=== PATIENT | male | born 1975 | race Caucasian/White ===

== ENCOUNTER 2021-11-15 08:00 | Outpatient (RCR) | payer BC, SELFPAY ==
[2021-11-15 08:05] VITALS: BMI 23.3
[2021-11-15 08:11] VITALS: BMI 23.3
== END 2022-02-05 09:46 | disposition home or self-care (01) ==
LOC: ANHDMC 08:00
PROVIDERS: PCP Internal Medicine; Visit Provider Internal Medicine Endocrinology, Diabetes & Metabolism
DX: E10.649 Type 1 diabetes mellitus with hypoglycemia without coma (principal); Z71.89 Other specified counseling; Z71.3 Dietary counseling and surveillance
CPT/HCPCS: 97802; G0108

== ENCOUNTER 2022-12-28 06:47 | Emergency (ER) | payer OTHER, SELFPAY ==
[2022-12-28 06:50] VITALS: BP 116/73; PULSE 64; RESP 14; TEMP 36.4; O2SAT 97
[2022-12-28] MEDS: CLINDAMYCIN HCL 150 MG CAP PO (07:31)
[2022-12-28] MEDS: LIDOCAINE HCL 1% LOCAL INJ 10 ML VIAL INFILTRATE (07:31)
--- NOTE | 2022-12-28 08:23 | ED.GENADULT ---
HPI - General Adult General Chief complaint: Extremity Injury, Lower Stated complaint: Infection r little toe Time Seen by Provider: 12/28/22 07:11 History of Present Illness HPI narrative: 47-year-old male with history of type 1 diabetes presented emerged department for evaluation of an abscess between his fourth and fifth toes on his right foot. Patient states he is an avid runner and did develop a sore on his foot that since became infected. Patient states he woke up this morning and had increased pain and swelling of the suspected abscess. Related Data Allergies Allergy/AdvReac Type Severity Reaction Status Date / Time No Known Allergies Allergy Unknown Verified 12/11/22 11:37 Review of Systems Review of Systems: All systems reviewed & are unremarkable except as noted in HPI and below PMFSH Past Medical History Medical History Anxiety Erectile dysfunction Low libido Mixed hyperlipidemia Seizure Type 1 diabetes mellitus with hyperglycemia Surgical History Surgical History History of hernia repair Family History Family History Other Back pain Family history of arthritis Social History Social History (Updated 12/11/22 @ 11:46 by Nan Vu CMA) Smoking packs per day: 1 Smoking cigarettes per day: 20.0 Years smoked: 28 Smoking pack-years: 28.00 Smoking status: Current every day smoker Tobacco type: cigarettes Alcohol intake: former Substance use: never Lack of Transportation: No Lack of Food: Never True Current Housing: I Have Housing Concerned About Future Housing: No Difficulty Paying Gas/Electric Bills: No Difficulty Paying for Meds: No Currently Unemployed: No Education: High School Diploma/GED Difficulty w/ Childcare or Family Care: No Living arrangements: with family Additional living arrangements comments: lives with his girlfriend and 2 kids Occupation/Education: occupation 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 HEAD: normocephalic, atraumatic. EYES: PERRLA/EOMI, conjunctivae clear. NOSE: Normal no drainage EARS:TMS clear with good light reflex. THROAT: Pharynx clear, no exudate. NECK: Supple. No adenopathy, no masses. RESPIRATORY: Airway patent, respirations nonlabored. Clear to auscultation bilaterally, no rales, rhonchi, wheezing. CARDIOVASCULAR: Regular rate and rhythm without murmurs rubs or gallops. ABDOMINAL: Soft, nontender, nondistended, normal bowel sounds MUSCULOSKELETAL: Moves all extremities. Strength/ROM intact, No edema, No calf tenderness. NEURO: Alert. Cranial nerves II through XII intact. Grossly intact SKIN: Abscess between fourth and fifth toes on right foot Course Course Emergency Course: Abscess was drained as described in the procedure note with significant improvement in the patient's discomfort. Patient was started on clindamycin in the emergency department. Patient was discharged home with clindamycin and instructions for sitz bath's for the foot. Patient also has follow-up scheduled on Friday with his primary care physician. All questions and concerns were addressed and patient was educated on reasons to return to the emergency department. Vital Signs Vital signs: Vital Signs Temperature 97.6 F 12/28/22 06:50 Pulse Rate 64 12/28/22 06:50 Respiratory Rate 14 12/28/22 06:50 Blood Pressure 116/73 12/28/22 06:50 Pulse Oximetry 97 12/28/22 06:50 Oxygen Delivery Room Air 12/28/22 06:50 Temperature 97.6 F 12/28/22 06:50 Pulse Rate 64 12/28/22 06:50 Respiratory Rate 14 12/28/22 06:50 Blood Pressure 116/73 12/28/22 06:50 Pulse Oximetry 97 12/28/22 06:50 Oxygen Delive
== END 2022-12-28 08:39 | disposition home or self-care (01) ==
PROVIDERS: Emergency Provider Emergency Medicine; PCP Nurse Practitioner
DX: L02.611 Cutaneous abscess of right foot (principal); E10.9 Type 1 diabetes mellitus without complications; E78.2 Mixed hyperlipidemia; F17.210 Nicotine dependence, cigarettes, uncomplicated; Z79.4 Long term (current) use of insulin
CPT/HCPCS: 10060; 87070; 87205; 99283; A9270

== ENCOUNTER 2024-03-04 11:00 | Outpatient (RCR) | payer OTHER, SELFPAY ==
[2024-02-05 09:50] VITALS: BP_SYST 145
--- NOTE | 2024-02-05 11:03 | OPREHPOC ---
Outpatient Therapy Plan of Care This is a Multidisciplinary Plan of Care that may contain components documented by all disciplines (PT, OT, and ST.) PT Problem 1 PT Problem #1 Knowledge Deficit PT Goal 1 Goal / Goal Update *indep with HEP * correct shoulder position with exercises Target Visit 8 PT Problem 2 PT Problem #2 Pain PT Goal 1 Goal / Goal Update 1* decrease pain in L shoulder to 5/10 at worst 2* self assessment Quick DASH rating of 18% limitation in activity level 3* pt report NO awakening from sleeping due to shoulder pain Target Visit 8 PT Problem 3 PT Problem #3 Impaired Flexibility PT Goal 1 Goal / Goal Update increase L shoulder active ROM in standing, to improve use of L arm for home and functional tasks 1* flexion to 150' 2* abduction to 150' 3* IR- reach behind back, thumb to lower scapula Target Visit 8 PT Problem 4 PT Problem #4 Impaired Strength PT Goal 1 Goal / Goal Update increase strength of L shoulder/scapular complex, to increase use of L arm 1* prone scapular adduction with arm overhead x 10 reps 2* pt stand with correct position of shoulders/ scapula Target Visit 8
--- NOTE | 2024-02-05 11:03 | PTOPEVAL1 ---
Assessment and note entered by Narcisa Green, PT Evaluation Information Assessment Status Evaluation ICD-10 Condition Codes (PT) M25.512 Onset Mar 2023 Subjective Information doing work out, soreness of shoulder, then had lack of movement of shoulder; have been trying to do some stretching R handed; Activity level: fitness activity, runner; work office and manage job sites, walking, no physical lifting; Reported Pain Level Pain Score Self Report Additional Pain Score Comments pain range in the past week 0-9/10; sharp pain increase pain: reaching behind back, reach out to side, quick motion of lifting from the floor; unable to do pull up; cannot lie on L shoulder; decrease pain: resting, use of cane for pressure point massage over posterior shoulder; sleeping-awaken due to pain in shoulder 1-2 x/night problems to get comfortable position have not used heat or ice, instruct on PRN use; not taking any pain meds; Assessment PT Clinical Summary Vinh has the diagnosis of impingement syndrome L shoulder. Onset of pain 10 months ago with increase fitness workout. He is active, with fitness activities and running for marathon. Sleeping and activity level is disrupted due to shoulder pain. He is also having L shoulder pain with running. Quick DASH rating of 34% limitation in activity level. With the evaluation: decreased L shoulder active ROM of all motions with decreased strength; IR and abduction are most painful; rounded shoulder posture. Skilled PT services are indicated for modalities to decrease pain, therapeutic exercises to increase functional use of non dominant UE and education for HEP and posture correction. Plan of Care Interventions Electrical Stimulation,Hot Pack/Cold Pack,Manual Therapy,Neuro Re-education,Patient Education,Therapeutic Activities,Therapeutic Exercise,Ultrasound,Other Other Interventions taping, dry needling PT Services Indicated Yes Treatment Frequency and 1-2x/wk for 8 visits Duration These treatments will address the objective and functional deficits as defined above. The patient will be advanced safely and appropriately in order for the patient to progress towards his/her prior level of function. Additional exercises will be introduced and as well as a comprehensive home exercise program upon discharge, if needed, ?to ensure carryover of functional gains achieved in the clinic. This treatment plan has been reviewed and agreement upon by the patient.
--- NOTE | 2024-02-26 11:02 | PCPTNOTE ---
Patient was a No Show for today's appointment.
--- NOTE | 2024-03-08 14:19 | PCPTNOTE ---
Patient was a No Show/No Call for today's Progress Note visit.
--- NOTE | 2024-03-26 14:17 | PTOPDC ---
Assessment and note entered by Narcisa Green, PT Discharge Report Assessment Status Discharge - Pt Not Present ICD-10 Condition Codes (PT) M25.512 Onset Mar 2023 Subjective Information pt was not seen this date Assessment PT Clinical Summary Vinh has received 6 PT sessions, from Feb 04 to Mar 04. He did not show for 2 appointments. Discharge PT due to stop attending therapy. The goals were not addressed. Plan of Care PT Services Indicated No
== END 2024-03-26 16:37 | disposition home or self-care (01) ==
LOC: ANHPT 11:00
PROVIDERS: PCP Nurse Practitioner; Visit Provider Orthopaedic Surgery
DX: M75.42 Impingement syndrome of left shoulder (principal); M24.112 Other articular cartilage disorders, left shoulder
CPT/HCPCS: 97032; 97110; 97140; 97161; 97530

== ENCOUNTER 2024-04-12 11:36 | Outpatient (CLI) | payer OTHER, SELFPAY ==
--- NOTE | ~2024-04-12 | MR_ITS ---
EXAMINATION: MR shoulder LT w con DATE: 04/12/2024 13:00 INDICATION: Left shoulder pain TECHNIQUE: Magnetic resonance imaging (MRI) of the left shoulder was performed following intra-artic ular gadolinium contrast injection and without intravenous contrast. Details of the glenohumeral join t injection have been dictated separately. Sequences included axial T2-weighted FS FSE, axial T1-brea ghted FS FSE, coronal oblique T1-weighted FS FSE, coronal oblique T2-weighted FSE, sagittal T2-weight ed FS FSE, sagittal T1-weighted FSE, and ABER (abduction external rotation) T1-weighted FS FSE. COMPARISON: None. FINDINGS: Coracoacromial arch: The acromion undersurface is curved in morphology (type II). The coracoacromial ligament is normal. A cromioclavicular joint is normal. Rotator cuff: The supraspinatus, infraspinatus and teres minor are normal. The subscapularis is normal. Normal rota tor cuff muscle bulk and signal. Biceps tendon, glenoid labrum and glenohumeral cartilage: Long head of the biceps tendon is normal. Small shallow tear along the chondral labral junction at th e 12:00-11:00 position of the superior glenoid labrum. Remainder of the labrum is normal. Glenohumera l cartilage is normal. Bones and other: Normal marrow signal with no edema, fracture or pathologic marrow replacing process. Contrast extends into a few intraosseous ganglion cyst at the bare space along side the medial and posterior facets o f the greater tuberosity. Small amount of fluid in the subacromial/subdeltoid bursa consistent with m ild bursitis. IMPRESSION: 1. Small shallow tear at the base of the superior glenoid labrum. Reviewed, dictated and finalized at location B. FISHER
--- NOTE | ~2024-04-12 | XR_ITS ---
EXAMINATION: XR fl inj shoulder LT - MR/CT DATE: 04/12/2024 12:22 INDICATION: Back left shoulder pain TECHNIQUE: A time-out was performed to verify the patient's name, date of , and procedure to b e performed. The procedure including the risks, benefits, and alternatives was discussed with the pat ient. Risks discussed included bleeding and infection. The patient understood the risks and agreed to proceed. The skin overlying the rotator cuff interval of the left glenohumeral joint was prepped an d draped in usual sterile fashion. Anesthetic was administered with 1% lidocaine subcutaneously. A 22 G needle was advanced under fluoroscopic guidance into the joint. Injection of 1 mL of Omnipaque 240 confirmed intra-articular position of the needle. Subsequently, injectate consisting of 12 mL of 2:1:1 mixture of sterile saline:Omnipaque 240:1% lidocaine mixed 200:1 with 529 mg/mL Multihance gatito olinium contrast was instilled with intra-articular menstruation confirmed with intermittent fluoros copy. The needle was removed and the entry site was cleaned and dressed. There were no immediate com plications. Fluoroscopy exposure time was 0.3 minutes. The total number of images was 143. FINDINGS: Real-time fluoroscopy demonstrates the needle in the left glenohumeral joint. IMPRESSION: 1. Successful left glenohumeral joint injection of gadolinium contrast mixture subsequent MRI arthrog jarrett which has been dictated separately. Reviewed, dictated and finalized at location B. [place] CASHIER IMPRESSION: 1. Successful left glenohumeral joint injection of gadolinium contrast mixture subsequent MRI arthrogram which has been dictated separately.
== END 2024-04-12 11:37 | disposition home or self-care (01) ==
LOC: MICIMG 11:37
PROVIDERS: PCP Nurse Practitioner; Visit Provider Orthopaedic Surgery
DX: M25.512 Pain in left shoulder (principal)
CPT/HCPCS: 23350; 73040; 73222; A9577; Q9967

== ENCOUNTER 2024-04-28 14:16 | Outpatient (CLI) | payer OTHER, SELFPAY ==
--- NOTE | ~2024-04-28 | XR_ITS ---
EXAMINATION: XR lg joint inject/asp w image DATE: 04/28/2024 14:44 INDICATION: Pain in left shoulder. TECHNIQUE: A time-out was performed to verify the patient's name, date of , and procedure to b e performed. The procedure including the risks, benefits, and alternatives was discussed with the pat ient. Risks discussed included bleeding and infection. The patient understood the risks and agreed to proceed. The skin overlying the left glenohumeral joint was prepped and draped in usual sterile fas hion. Anesthetic was administered with 1% lidocaine subcutaneously. A 22 G needle was advanced unde r fluoroscopic guidance into the joint. Subsequently, injectate consisting of 4 mL 1% lidocaine and 1 mL 80 mg/mL Depo-Medrol was instilled. The needle was removed and the entry site was cleaned and d ressed. There were no immediate complications. Fluoroscopy exposure time was 0.1 minutes. The total number of images was 1. FINDINGS: Real-time fluoroscopy demonstrates the needle in the left glenohumeral joint. Patient's neo n prior to procedure:12/02. Patient's pain following the procedure: 07/05. IMPRESSION: 1. Fluoroscopy guided left glenohumeral joint injection of local anesthetic and steroid with decrease in the patient's presenting pain. Reviewed, dictated and finalized at location A. K WALKER
== END 2024-04-28 14:17 | disposition home or self-care (01) ==
PROVIDERS: PCP Nurse Practitioner; Visit Provider Orthopaedic Surgery
DX: M25.512 Pain in left shoulder (principal)
CPT/HCPCS: 20610; 77002; J1010; J2003

== ENCOUNTER 2024-04-28 18:05 | Emergency (ER) | payer OTHER, SELFPAY ==
--- NOTE | ~2024-04-28 | CT_ITS ---
Procedure: CT shoulder LT w con Ordering provider: Luis Enrique Thomas MD History: . shoulder pain s/p injection . Comparison: None. Technique: Thin slice axial CT of the No IV contrast was given. Sagittal and coronal reformatted imag es were also obtained and reviewed. Radiation reduction technique utilized The dose-length product was 280.82 mGy-cm. Findings: BONES: No fracture or dislocation. JOINT SPACES: Normal SOFT TISSUES: Air is seen in the soft tissues below the acromioclavicular joint. Air bubbles also see n inferior to the humeral head. IMPRESSION: No acute osseous abnormality. Air bubbles most likely post procedural. Reviewed, dictated and finalized at location A. TAL PRINTER OPERATOR
[2024-04-28 18:20] VITALS: BP 106/56; PULSE 61; RESP 18; TEMP 36.4; O2SAT 100
[2024-04-28] MEDS: MORPHINE SULFATE (*CRX) 4 MG/ML INJ IV PUSH (21:24)
[2024-04-28 21:34] LABS: Basophils Percent Auto 0.2 % (0.2-1.2); Hemoglobin 14.9 g/dL (14.0-18.0); Immature Granulocyte Absolute 0.05 K/mm3 (0.00-0.031); Immature Granulocyte Percent A 0.4 % (0-0.5); Lymphocytes Absolute Auto 0.75 K/mm3 (0.9-3.2); Lymphocytes Percent Auto 6.6 % (18.3-44.2); Mean Corpuscular HGB Conc 35.5 g/dl (32-36); Mean Corpuscular Hemoglobin 32.3 pg (26-34); Mean Corpuscular Volume 90.9 fl (80-100); Mean Platelet Volume 9.8 fl (7.4-10.4); Monocytes Absolute Auto 0.4 K/mm3 (0.1-0.6); Monocytes Percent Auto 3.9 % (2.6-8.5); Neutrophils Absolute Auto 10.1 K/mm3 (1.3-6.7); Neutrophils Percent Auto 88.9 % (45.5-73.1); Platelet Count Result 272 k/mm3 (150-375); Red Blood Count 4.62 M/mm3 (4.6-6.20); Red Cell Distribution Width 12.3 % (11.5-14.5); White Blood Count 11.4 K/mm3 (4.5-10.0)
[2024-04-28 21:36] LABS: Estimated CRCL calculation 65 ml/min; Estimated Glomerular Filt Rate > 60
[2024-04-28 21:44] LABS: Alanine Aminotransferase 24 U/L (6-50); Albumin Level 4.5 g/dL (3.5-5.1); Alkaline Phosphatase 77 U/L (38-126); Anion Gap 6 mmol/L (4-12); Aspartate Amino Transferase 26 U/L (17-59); Bilirubin,Total 0.4 mg/dL (0.2-1.3); Blood Urea Nitrogen 21 mg/dL (9-20); Calcium 9.6 mg/dL (8.4-10.2); Carbon Dioxide 26 mmol/L (22-30); Chloride 103 mmol/L (98-107); Estimated CRCL calculation 77 ml/min; Estimated Glomerular Filt Rate > 60; Glucose 221 mg/dL (65-110); Potassium 4.7 mmol/L (3.4-5.0); Sodium 135 mmol/L (137-145)
--- NOTE | 2024-04-28 22:13 | ED_ITS ---
HPI - General Adult General Chief complaint: Extremity Problem,Nontraumatic Stated complaint: L shoulder pain Time Seen by Provider: 04/28/24 21:03 History of Present Illness HPI narrative: Patient is a 40-year-old gentleman who presents emergency department chief complaint of left shoulder pain. Patient reports that he had a steroid shot in the shoulder done by Interventional Radiology earlier today the patient reports that he initially was feeling better and then started having severe pain in his left shoulder the patient reports the pain is worse with movement and improved with rest. Related Data Allergies Allergy/AdvReac Type Severity Reaction Status Date / Time No Known Allergies Allergy Unknown Verified 04/16/24 06:52 Review of Systems Review of Systems: A 10 system review of systems was completed on the patient and is negative except for what is stated in the HPI. Nursing and ancillary documentation was reviewed. [facility] Past Medical History Medical History Anxiety Erectile dysfunction Low libido Mixed hyperlipidemia Seizure Type 1 diabetes mellitus with hyperglycemia Surgical History Surgical History History of hernia repair Family History Family History Mother Depression Father Depression Heart disease Other Back pain Family history of arthritis Social History Social History Smoking packs per day: 1 Smoking cigarettes per day: 20.0 Years smoked: 28 Smoking pack-years: 28.00 Smoking status: Current every day smoker Tobacco type: cigarettes Second hand tobacco smoke exposure: Yes Alcohol intake: former Substance use: never Substance use type: does not use Current Housing: Decline to Answer Concerned About Future Housing: Decline to Answer Difficulty Paying Gas/Electric Bills: Decline to Answer Difficulty Paying for Meds: Decline to Answer Currently Unemployed: Decline to Answer Education: Decline to Answer Difficulty w/ Childcare or Family Care: Decline to Answer Living arrangements: with family Additional living arrangements comments: lives with his girlfriend and 2 kids Occupation/Education: occupation Additional occupation/education comments: [employer] Gender identity (if verbalized by the patient): Male Sexual Orientation (if Verbalized by the Patient): Straight or Heterosexual Spiritual care concerns: No Exam Narrative: GENERAL: Well-appearing, well-nourished, and in no acute distress. HEAD: Normocephalic, atraumatic. EYES: PERRLA and EOMI. ENT: Nares clear, no rhinorrhea or epistaxis. Mucous membranes moist. NECK: Supple. CHEST: Clear to auscultation. No respiratory distress. HEART: Regular rate and rhythm. No murmur heard. Normal peripheral pulses. ABDOMEN: Soft, nontender, nondistended, normal active bowel sounds. EXTREMITIES: Normal range of motion in all extremities except for left upper extremity there is limited range of motion of the left shoulder there is tendern ess to palpation no crepitance no erythema. No edema. SKIN: Warm, dry, no rash. NEURO: No focal deficits. Alert and oriented x3. PSYCH: Normal mood and affect. Course Vital Signs Vital signs: Vital Signs Temperature 36.4 C 04/28/24 18:20 Pulse Rate 61 04/28/24 18:20 Respiratory Rate 18 04/28/24 18:20 Blood Pressure 106/56 L 04/28/24 18:20 Pulse Oximetry 100 04/28/24 18:20 Temperature 36.4 C 04/28/24 18:20 Pulse Rate 61 04/28/24 18:20 Respiratory Rate 18 04/28/24 18:20 Blood Pressure 106/56 L 04/28/24 18:20 Pulse Oximetry 100 04/28/24 18:20 Medical Decision Making MDM Narrative Medical decision making narrative: Differential diagnosis includes post procedure hemarthrosis, postprocedural pain Imaging was obtained of the left shoulder that showed No acute osseous abnormality. Air bubbles most likely post procedural. The patient will be given pain control and will be discharged home to follow-up with his orthopedic surgeon Vital Signs Vital Signs: Vital Signs Temperature 36.4 C 04/28/24 18:20 Pulse Rate 61 04/28/24 18:20 Respiratory Rate 18 04/28/24 18:20 Blood Pressure 106/56 L 04/28/24 18:20 Pulse Oximetry 100 04/28/24 18:20 Temperature 36.4 C 04/28/24 18:20 Pulse Rate 61 04/28/24 18:20 Respiratory Rate 18 04/28/24 18:20 Blood Pressure 106/56 L 04/28/24 18:20 Pulse Oximetry 100 04/28/24 18:20 Lab Data 04/28/24 21:25 04/28/24 21:34 Labs: Lab Results 04/28/24 04/28/24 Range/Units 21:25 21:34 WBC 11.4 H (4.5-10.0) K/mm3 RBC 4.62 (4.6-6.20) M/mm3 Hgb 14.9 (14.0-18.0) g/dL Hct 42.0 (42.0-52.0) % MCV 90.9 (80-100) fl MCH 32.3 (26-34) pg MCHC 35.5 (32-36) g/dl RDW 12.3 (11.5-14.5) % Plt Count 272 (150-375) k/mm3 MPV 9.8 (7.4-10.4) fl Immature Gran % (Auto) 0.4 (0-0.5) % Neut % (Auto) 88.9 H (45.5-73.1) % Lymph % (Auto) 6.6 L (18.3-44.2) % Gaston % (Auto) 3.9 (2.6-8.5) % Eos % (Auto) 0.0 (0-4.4) % Baso % (Auto) 0.2 (0.2-1.2) % Lymph # (Auto) 0.75 L (0.9-3.2) K/mm3 Gaston # (Auto) 0.4 (0.1-0.6) K/mm3 Eos # (Auto) 0.0 (0-0.3) K/mm3 Baso # (Auto) 0.0 (0.0-0.1) K/mm3 Abs Immat Gran (auto) 0.05 H (0.00-0.031) K/mm3 Absolute Neuts (auto) 10.1 H (1.3-6.7) K/mm3 Absolute Nucleated RBC 0.000 (0.0-0.012) K/mm3 Nucleated RBC % 0.0 (0.0-0.2) % Sodium 135 L (137-145) mmol/L Potassium 4.7 (3.4-5.0) mmol/L Chloride 103 (98-107) mmol/L Carbon Dioxide 26 (22-30) mmol/L Anion Gap 6 (4-12) mmol/L BUN 21 H (9-20) mg/dL Creatinine 1.00 1.20 (0.7-1.3) mg/dL Estim Creat Clear Calc 77 65 ml/min Estimated GFR > 60 > 60 (59 - ) Glucose 221 H (65-110) mg/dL Calcium 9.6 (8.4-10.2) mg/dL Total Bilirubin 0.4 (0.2-1.3) mg/dL AST 26 (17-59) U/L ALT 24 (6-50) U/L Alkaline Phosphatase 77 (38-126) U/L Total Protein 7.0 (6.3-8.2) g/dL Albumin 4.5 (3.5-5.1) g/dL Discharge Plan Discharge Clinical Impression: Other acute postprocedural pain, Left shoulder pain Patient Disposition: Home, Self-Care Condition: Stable Instructions: Antibiotic Form, Shoulder Pain (ED) Additional Instructions: The CT scan showed no acute abnormalities. The pain is most likely secondary to having the injection. There is no signs of significant bleeding in the joint Please follow-up with your orthopedic surgeon Prescriptions: New hydrocodone-acetaminophen 5-325 mg tablet 1 tablet PO Q6H PRN (Reason: pain) 3 Days Qty: 12 0RF No Action valacyclovir 1 gram tablet 2,000 mg PO .COMPLEX Qty: 12 1RF Rx Instructions: 2,000 mg orally Take 2 tablets orally at onset of symptoms. Repeat in 12 hours; (DME) Dexcom G6 Transmitter Device See Rx Instructions .ROUTE .COMPLEX Qty: 1 3RF Dose Instruction: REPLACE EVERY 90 DAYS Rx Instructions: REPLACE EVERY 90 DAYS (DME) Dexcom G6 Sensor Device See Rx Instructions .ROUTE .COMPLEX Qty: 9 3RF Dose Instruction: REPLACE 1 SENSOR EVERY 10 DAYS Rx Instructions: REPLACE 1 SENSOR EVERY 10 DAYS glucagon 3 mg/actuation spray,non-aerosol 3 mg intranasal ONCE Qty: 2 4RF Rx Instructions: as a single dose; may repeat once in 15 minutes if no response (DME) urine glucose-ketones test Strip See Rx Instructions .ROUTE .MEDSUPPLY Qty: 50 0RF Rx Instructions: As directed glucose [Dex4 Glucose] 4 gram tablet,chewable 16 g PO Q15M PRN (Reason: hypoglycemia) Qty: 60 1RF Rx Instructions: until symptoms of low blood sugar are controlled insulin lispro 100 unit/mL solution 60 unit continuous subcutaneous infusion DAILY Qty: 60 1RF (DME) insulin syringe-needle U-100 [BD Insulin Syringe Ultra-Fine] 1 mL 31 gauge x 5/16 syringe See Rx Instructions .ROUTE .MEDSUPPLY Qty: 200 1RF Rx Instructions: use to inject insulin 2 times daily (DME) Dexcom G6 Warehouse Packer Misc See Rx Instructions .ROUTE .COMPLEX Qty: 1 0RF Dose Instruction: USE DIRECTED Rx Instructions: USE DIRECTED insulin glargine [Lantus Solostar U-100 Insulin] 100 unit/mL (3 mL) insulin pen 20 unit subcut QAM PRN (Reason: insulin pump malfuction) Qty: 15 1RF (DME) Omnipod 5 G6 Pods (Gen 5) Cartridge See Rx Instructions .Route Qty: 30 3RF Rx Instructions: to admister insulin via Omnipod/dexcom system Follow-up/Referrals: Bossman Riddle, TEST EQUIPMENT MECHANIC [Primary Care Provider] -
[2024-04-28] MEDS: HYDROcodone/acetaminophen (*CRX) 5-325 MG TABLET 1 TAB PO (22:35)
[2024-04-28 22:44] VITALS: BP 139/80; PULSE 71; RESP 16; TEMP 36.6; O2SAT 99
== END 2024-04-28 22:46 | disposition home or self-care (01) ==
PROVIDERS: Emergency Provider Emergency Medicine; PCP Nurse Practitioner
DX: G89.18 Other acute postprocedural pain (principal); M25.512 Pain in left shoulder; E78.2 Mixed hyperlipidemia; E10.9 Type 1 diabetes mellitus without complications; F17.210 Nicotine dependence, cigarettes, uncomplicated; Z79.4 Long term (current) use of insulin
CPT/HCPCS: 36415; 73201; 80053; 85025; 96374; 99284; A9270; J2270; Q9967

== ENCOUNTER 2024-06-07 11:00 | Outpatient (RCR) | payer OTHER, SELFPAY ==
[2024-05-06 11:05] VITALS: BP_SYST 90
--- NOTE | 2024-05-06 16:01 | OPREHPOC ---
Outpatient Therapy Plan of Care This is a Multidisciplinary Plan of Care that may contain components documented by all disciplines (PT, OT, and ST.) PT Problem 1 PT Problem #1 Knowledge Deficit PT Goal 1 Goal / Goal Update *indep with HEP Target Visit 8 PT Problem 2 PT Problem #2 Pain PT Goal 1 Goal / Goal Update * pt report pain rating at worst of 5/10 Target Visit 8 PT Goal 2 Goal / Goal Update * pt report with sleeping, awaken 1x/night due to shoulder pain Target Visit 8 PT Problem 3 PT Problem #3 Impaired Range of Motion PT Goal 1 Goal / Goal Update * increase AROM of L shoulder to improve reaching and use of L arm with home and self care tasks: standin* flexion 140' 2* abduction 90' 3* IR- reach behind back, palm to above waist Target Visit 8 PT Problem 4 PT Problem #4 Impaired Strength PT Goal 1 Goal / Goal Update * increase scapular-shoulder strength to improve posture and position of GH joint pt perform prone scapular retraction x 20 reps with arms at 90', and overhead positions Target Visit 8
--- NOTE | 2024-05-06 16:01 | PTOPEVAL1 ---
Assessment and note entered by Narcisa Green PT Evaluation Information Assessment Status Evaluation ICD-10 Condition Codes (PT) Pain in left shoulder M25.512 Onset Mar 2023 Subjective Information had injection, did not help pain; frustrated about continued issues with pain and limited motion of shoulder MRI report stated: superior labral tear, mild subdeltoid bursitis; have been doing exercises for fitness but no weights for shoulder; previous PT here for shoulder; have been continuing the exercises for shoulder that he received here; he feels, compared to previous--pain and motion is about the same as when last here for therapy activity: active lifestyle; does regular fitness exercises; works - walking, standing, computer work; R hand dominant Reported Pain Level Pain Score Self Report Additional Pain Score Comments pain range in the past week: 0-8/10; posterior shoulder joint increase pain with reaching motions over 90' and IR motions decrease pain: resting; is not taking any pain meds; not using heat or ice with sleeping, pain awakens 3x/night Assessment PT Clinical Summary Vinh has the diagnosis of L shoulder impingement tendonitis. He has a history of chronic pain L shoulder and has had PT here about 1 year ago. States the shoulder feels about the same--limited motion and use of L arm and painful. Sleeping is disrupted due to pain, awakening 3x/night. He is frustrated with continued issues with his shoulder Self assessment Quick DASH rating of 55% limitation in activity. With the evaluation: he has decreased L shoulder ROM in all motions with weakness; pain with all motions--IR most painful; rounded shoulder posture; weakness over thoracic-scapular musculature. Skilled PT services are indicated for modalities to decrease pain, therapeutic exercises to increase L shoulder ROM and strength with education for HEP, posture and body mechanics. Plan of Care Interventions Electrical Stimulation,Hot Pack/Cold Pack,Manual Therapy,Neuro Re-education,Patient/Caregiver Education,Therapeutic Activities,Therapeutic Exercise,Ultrasound,Other Other Interventions taping, dry needling PT Services Indicated Yes Treatment Frequency and 1-2x/wk for 8 visits Duration These treatments will address the objective and functional deficits as defined above. The patient will be advanced safely and appropriately in order for the patient to progress towards his/her prior level of function. Additional exercises will be introduced and as well as a comprehensive home exercise program upon discharge, if needed, ?to ensure carryover of functional gains achieved in the clinic. This treatment plan has been reviewed and agreement upon by the patient.
[2024-06-07 11:00] VITALS: BP_SYST 95
--- NOTE | 2024-06-07 11:51 | PTOPDC ---
Assessment and note entered by Narcisa Green, PT Assessment Status Discharge ICD-10 Condition Codes (PT) Pain in left shoulder M25.512 Onset Mar 2023 Subjective Information shoulder is moving more, but pain continues and is not any less; see the dr next week; have been continuing to do his fitness exercises and weights, with less than he used to do, and it does not really make a difference with his shoulder pain; frustrated about the shoulder continuing to hurt and issues with sleeping; Reported Pain Level Pain Score Self Report Additional Pain Score Comments pain range in past week 0-8/10; increase pain: over 90' abduction, quick motions decrease pain: rest, not use any pain meds, heat or ice for shoulder awaken from sleep 3-5 x/night dry needling did not really help the shoulder; stretching the shoulder helps Assessment PT Clinical Summary Vinh has received 6 PT sessions. Compared to the initial evaluation: pain is the same at 0-8/10; self assessment from 55% to 34% limitation in activity level; shoulder active flexion and abduction increased slightly, with IR and ER motions the same; increase in scapular- thoracic strength; education for HEP and posture; L shoulder ROM: active standing/passive supine: flexion 125/135'; abduction 80/95'; IR-reaching behind back, palm to sacrum/ 60' ER- reaching to back of head, palm to back of head / 45', with shoulder abduction at 45' The goals were partially achieved. Discharge PT Services. He is to continue with his HEP. Plan of Care PT Services Indicated No
== END 2024-06-07 15:29 | disposition home or self-care (01) ==
LOC: ANHPT 11:00
PROVIDERS: PCP Nurse Practitioner; Visit Provider Orthopaedic Surgery
DX: M77.8 Other enthesopathies, not elsewhere classified (principal)
CPT/HCPCS: 97110; 97140; 97161; 97530

== ENCOUNTER 2024-08-19 14:00 | Outpatient (RCR) | payer OTHER, SELFPAY ==
--- NOTE | 2024-06-21 09:21 | OPREHPOC ---
Outpatient Therapy Plan of Care This is a Multidisciplinary Plan of Care that may contain components documented by all disciplines (PT, OT, and ST.) PT Problem 1 PT Problem #1 Knowledge Deficit PT Goal 1 Goal / Goal Update [place] with HEP Target Visit 4 PT Goal 2 Goal / Goal Update Report consistent pain less than 2/10 with exercise activity in home PT Problem 2 PT Problem #2 Impaired Range of Motion PT Goal 1 Goal / Goal Update 1. Improve L shoulder flexion ROM to 170 degrees to improve active reach 2. Improve L shoulder external rotation to 80 degrees to improve dressing and self care 3. Improve L shoulder abduction ROM to 140 degrees to improve inferior glide of capsule to reduce upper trapezius compensation Target Visit 8 PT Problem 3 PT Problem #3 Pain PT Goal 1 Goal / Goal Update Report Full nights sleep without wake up secondary to shoulder pain for 1 consecutive week Target Visit 8
--- NOTE | 2024-06-21 09:22 | PTOPEVAL1 ---
Assessment and note entered by Dandre Pfeiffer, PT Evaluation Information Assessment Status Evaluation Diagnosis Adhesive capsulitis of Left Shoulder ICD-10 Condition Codes (PT) Pain in left shoulder M25.512 Onset 06/16/24 Subjective Information Reports that he received a cortisone injection on June 16. Reports that he actually feels he is doing a bit better. He has not been pushing his limits but he has been trying to do a little more activity and stretching. He feels comfortable with stretching and HEP. He is still having some aching with sleep and waking up at night with some pain. Reported Pain Level Pain Score 0: Self Report Assessment PT Clinical Summary Patient presents with presence of adhesive capsulitis. Significant limitation in shoulder capsule mobility noted. Inferior shoulder strength is maintain to a functional degree, but unable to maintain over shoulder activity and muscle activation. Patient will benefit from skilled therapy to continue to promote capsular mobility with work into functional shoulder ROM. Plan of Care Interventions Hot Pack/Cold Pack,Manual Therapy,Neuro Re- education,Therapeutic Activities,Therapeutic Exercise PT Services Indicated Yes Treatment Frequency and 1-2x/week for 8 visits Duration These treatments will address the objective and functional deficits as defined above. The patient will be advanced safely and appropriately in order for the patient to progress towards his/her prior level of function. Additional exercises will be introduced and as well as a comprehensive home exercise program upon discharge, if needed, ?to ensure carryover of functional gains achieved in the clinic. This treatment plan has been reviewed and agreement upon by the patient.
--- NOTE | 2024-07-15 13:05 | PTOPPROG ---
Assessment and note entered by Dandre Pfeiffer, PT Evaluation Information Assessment Status Progress Diagnosis Adhesive capsulitis of Left Shoulder ICD-10 Condition Codes (PT) Pain in left shoulder M25.512 Onset 06/16/24 Subjective Information Reports that overall he has been pushing himself but if he takes 1 or more days off he sees regression. He has really been able to push himself into pain but personally feels that there has not been a lot of improvement. He is hoping that there is an option available to shorten the length of recovery. Follows up with MD in July. Assessment PT Clinical Summary Patient has shown positive progress in shoulder ROM on this date with indications of improved shoulder ROM in flexion, and both rotations. Still having significant trouble with pain at end range of current motion. Overall progress has been very slow but positive. Patient has been diligent with HEP and has been pushing himself but not as much as he feels he gets pushed in therapy. Still presents with functional capacity limiting deficits. Plan of Care Interventions Hot Pack/Cold Pack,Manual Therapy,Neuro Re- education,Therapeutic Activities,Therapeutic Exercise PT Services Indicated Yes Treatment Frequency and 1-2x/week for 8 visits Duration These treatments will address the objective and functional deficits as defined above. The patient will be advanced safely and appropriately in order for the patient to progress towards his/her prior level of function. Additional exercises will be introduced and as well as a comprehensive home exercise program upon discharge, if needed, ?to ensure carryover of functional gains achieved in the clinic. This treatment plan has been reviewed and agreement upon by the patient.
--- NOTE | 2024-07-26 14:15 | PCPTNOTE ---
Canceled ill. RONNYS
--- NOTE | 2024-08-19 17:55 | OPREHPOC ---
Outpatient Therapy Plan of Care This is a Multidisciplinary Plan of Care that may contain components documented by all disciplines (PT, OT, and ST.) PT Problem 1 PT Problem #1 Knowledge Deficit PT Goal 1 Goal / Goal Update [place] with HEP Target Visit 4 Progress Met PT Goal 2 Goal / Goal Update Report consistent pain less than 2/10 with exercise activity in home Target Visit 16 Progress Partially Met PT Problem 2 PT Problem #2 Impaired Range of Motion PT Goal 1 Goal / Goal Update 1. Improve L shoulder flexion ROM to 170 degrees to improve active reach 2. Improve L shoulder external rotation to 80 degrees to improve dressing and self care 3. Improve L shoulder abduction ROM to 140 degrees to improve inferior glide of capsule to reduce upper trapezius compensation Target Visit 16 Progress Partially Met PT Problem 3 PT Problem #3 Pain PT Goal 1 Goal / Goal Update Report Full nights sleep without wake up secondary to shoulder pain for 1 consecutive week Target Visit 16 Progress Partially Met
--- NOTE | 2024-08-19 17:56 | PTOPDC ---
Assessment and note entered by Dandre Pfeiffer, PT Evaluation Information Assessment Status Discharge Diagnosis Adhesive capsulitis of Left Shoulder ICD-10 Condition Codes (PT) Pain in left shoulder M25.512 Onset 06/16/24 Subjective Information Reports that overall he still feels he is struggling. He had a follow up with orthopedist next week to determine is he will be a surgical candidate given his alf difficulty with functional return of shoulder. Patient plans to continue extensive shoulder strengthening program as part of HEP. Assessment PT Clinical Summary Patient has seen progress in shoulder motion but it has been slow and painful per report. Continues to show flexion and external rotation limitation and ROM that is achieved passively is available but forced. He is still struggling with many base exercise activity. Plan of Care PT Services Indicated Yes
== END 2024-08-20 08:33 | disposition home or self-care (01) ==
LOC: ANHPT 14:00
PROVIDERS: PCP Nurse Practitioner; Visit Provider Orthopaedic Surgery
DX: M75.02 Adhesive capsulitis of left shoulder (principal); M25.512 Pain in left shoulder
CPT/HCPCS: 97110; 97140; 97161

== ENCOUNTER 2024-12-02 15:45 | Outpatient (RCR) | payer OTHER, SELFPAY ==
--- NOTE | 2024-09-09 17:29 | OPREHPOC ---
Outpatient Therapy Plan of Care This is a Multidisciplinary Plan of Care that may contain components documented by all disciplines (PT, OT, and ST.) PT Problem 1 PT Problem #1 Knowledge Deficit PT Goal 1 Goal / Goal Update [place] with HEP Target Visit 4 PT Goal 2 Goal / Goal Update Report no increase in pain with progressive shoulder mobility Target Visit 10 PT Problem 2 PT Problem #2 Impaired Range of Motion PT Goal 1 Goal / Goal Update 1. Achieve 175 degrees consistent active shoulder flexion of left shoulder 2. Achieve 85 degrees consistent active shoulder external rotation of left shoulder 3. Demonstrate 70 degrees of left shoulder internal rotation actively Target Visit 10
--- NOTE | 2024-09-09 17:29 | PTOPEVAL1 ---
Assessment and note entered by Dandre Pfeiffer, PT Evaluation Information Assessment Status Evaluation Diagnosis M75.02 ICD-10 Condition Codes (PT) Pain in left shoulder M25.512 Onset 09/06/24 Subjective Information Patient reports that he has not had any pain since procedure. He removed pain pump this morning with no complication. Feels some pulling on the incisions but that is all that he feels is restricting him at this time. Denies complications sleeping. Has initiated some independent stretching prior to today. Reported Pain Level Pain Score 0: Self Report Assessment PT Clinical Summary Patient presents with exceptionally improved shoulder ROM multidirectional this date. He has been very compliant and will continue with aggressive home stretching program. He exhibited improved tolerance to stretch in clinic and will continue to emphasize shoulder stretching in clinic through monitored progression program. Plan of Care Interventions Electrical Stimulation,Hot Pack/Cold Pack,Manual Lymph Drainage,Manual Therapy,Neuro Re-education, Therapeutic Activities,Therapeutic Exercise PT Services Indicated Yes Treatment Frequency and 2-3x/week for 10 visits Duration These treatments will address the objective and functional deficits as defined above. The patient will be advanced safely and appropriately in order for the patient to progress towards his/her prior level of function. Additional exercises will be introduced and as well as a comprehensive home exercise program upon discharge, if needed, ?to ensure carryover of functional gains achieved in the clinic. This treatment plan has been reviewed and agreement upon by the patient.
--- NOTE | 2024-10-11 17:47 | OPREHPOC ---
Outpatient Therapy Plan of Care This is a Multidisciplinary Plan of Care that may contain components documented by all disciplines (PT, OT, and ST.) PT Problem 1 PT Problem #1 Knowledge Deficit PT Goal 1 Goal / Goal Update [place] with HEP Target Visit 4 Progress Met PT Goal 2 Goal / Goal Update Report no increase in pain with progressive shoulder mobility Target Visit 14 Progress Partially Met PT Problem 2 PT Problem #2 Impaired Range of Motion PT Goal 1 Goal / Goal Update 1. Achieve 175 degrees consistent active shoulder flexion of left shoulder 2. Achieve 85 degrees consistent active shoulder external rotation of left shoulder 3. Demonstrate 70 degrees of left shoulder internal rotation actively Target Visit 14 Progress Partially Met PT Goal 1 Goal / Goal Update Demonstrate full serratus activation indicated by 50 repetitions of 5 # with no cueing Target Visit 14
--- NOTE | 2024-10-11 17:47 | PTOPPROG ---
Assessment and note entered by Dandre Pfeiffer, PT Evaluation Information Assessment Status Progress Diagnosis M75.02 ICD-10 Condition Codes (PT) Pain in left shoulder M25.512 Onset 09/06/24 Subjective Information Reports that he feels he is making up ground. He has had some pain and discomfort with progress and feels he is still having pain at end range of flexion and external rotation. Feels that most of the nature of the stretching is in the back of his shoulder. Feels he still has progress to make and wants to make sure he follows through after manipulation to maximize shoulder mobility. Assessment PT Clinical Summary Patient presents with exceptionally improved shoulder ROM multidirectional this date. He has been very compliant and will continue with aggressive home stretching program. He exhibited improved tolerance to stretch in clinic and will continue to emphasize shoulder stretching in clinic through monitored progression program. Plan of Care Interventions Electrical Stimulation,Hot Pack/Cold Pack,Manual Lymph Drainage,Manual Therapy,Neuro Re-education, Therapeutic Activities,Therapeutic Exercise PT Services Indicated Yes Treatment Frequency and 2-3x/week for 10 visits Duration These treatments will address the objective and functional deficits as defined above. The patient will be advanced safely and appropriately in order for the patient to progress towards his/her prior level of function. Additional exercises will be introduced and as well as a comprehensive home exercise program upon discharge, if needed, ?to ensure carryover of functional gains achieved in the clinic. This treatment plan has been reviewed and agreement upon by the patient.
--- NOTE | 2024-10-11 17:49 | PTOPPROG ---
Assessment and note entered by Dandre Pfeiffer, PT Evaluation Information Assessment Status Progress Diagnosis M75.02 ICD-10 Condition Codes (PT) Pain in left shoulder M25.512 Onset 09/06/24 Subjective Information Reports that he feels he is making up ground. He has had some pain and discomfort with progress and feels he is still having pain at end range of flexion and external rotation. Feels that most of the nature of the stretching is in the back of his shoulder. Feels he still has progress to make and wants to make sure he follows through after manipulation to maximize shoulder mobility. Assessment PT Clinical Summary Patient presents with exceptionally improved shoulder ROM multidirectional this date. He has been very compliant and will continue with aggressive home stretching program. He exhibited improved tolerance to stretch in clinic and will continue to emphasize shoulder stretching in clinic through monitored progression program. Plan of Care Interventions Electrical Stimulation,Hot Pack/Cold Pack,Manual Lymph Drainage,Manual Therapy,Neuro Re-education, Therapeutic Activities,Therapeutic Exercise PT Services Indicated Yes Treatment Frequency and 1x/week for 4 visits Duration These treatments will address the objective and functional deficits as defined above. The patient will be advanced safely and appropriately in order for the patient to progress towards his/her prior level of function. Additional exercises will be introduced and as well as a comprehensive home exercise program upon discharge, if needed, ?to ensure carryover of functional gains achieved in the clinic. This treatment plan has been reviewed and agreement upon by the patient.
--- NOTE | 2024-11-11 17:32 | OPREHPOC ---
Outpatient Therapy Plan of Care This is a Multidisciplinary Plan of Care that may contain components documented by all disciplines (PT, OT, and ST.) PT Problem 1 PT Problem #1 Knowledge Deficit PT Goal 1 Goal / Goal Update [place] with HEP Target Visit 4 Progress Met PT Goal 2 Goal / Goal Update Report no increase in pain with progressive shoulder mobility Target Visit 14 Progress Partially Met PT Problem 2 PT Problem #2 Impaired Range of Motion PT Goal 1 Goal / Goal Update 1. Achieve 175 degrees consistent active shoulder flexion of left shoulder 2. Achieve 85 degrees consistent active shoulder external rotation of left shoulder 3. Demonstrate 70 degrees of left shoulder internal rotation actively Target Visit 14 Progress Met PT Goal 1 Goal / Goal Update Demonstrate full serratus activation indicated by 50 repetitions of 5 # with no cueing Target Visit 18 PT Goal 2 Goal / Goal Update Improve left shoulder external rotation and flexion strength to 4+/5 to improve object lifting and stabilization of shoulder Target Visit 18
--- NOTE | 2024-11-11 17:32 | PTOPPROG ---
Assessment and note entered by Dandre Pfeiffer, PT Evaluation Information Assessment Status Progress Diagnosis M75.02 ICD-10 Condition Codes (PT) Pain in left shoulder M25.512 Onset 09/06/24 Subjective Information Reports that he has been putting a lot of emphasis on the terminal motion of the shoulder at this time. It has been painful at this range but the pain does not last. He is still concerned with relapse of shoulder motion as it too so long to get it back. Feels that he has some movement which has limited progress as well. Assessment PT Clinical Summary We have seen significant progress in patient shoulder ROM at this point but still has impingement pain through end range multidirectional. With this new ROM we have seen weakness that was unidentified through over shoulder activity as he has not been able to achieve this position for so long. Will benefit form skilled therapy t address these deficits with expectation to transition to independence. Plan of Care Interventions Electrical Stimulation,Hot Pack/Cold Pack,Manual Lymph Drainage,Manual Therapy,Neuro Re-education, Therapeutic Activities,Therapeutic Exercise PT Services Indicated Yes Treatment Frequency and 1x/week for 4 visits Duration These treatments will address the objective and functional deficits as defined above. The patient will be advanced safely and appropriately in order for the patient to progress towards his/her prior level of function. Additional exercises will be introduced and as well as a comprehensive home exercise program upon discharge, if needed, ?to ensure carryover of functional gains achieved in the clinic. This treatment plan has been reviewed and agreement upon by the patient.
== END 2024-12-08 23:59 | disposition home or self-care (01) ==
LOC: ANHPT 15:45
PROVIDERS: PCP Nurse Practitioner
DX: M75.02 Adhesive capsulitis of left shoulder (principal)
CPT/HCPCS: 97110; 97112; 97140; 97161; 97530

== ENCOUNTER 2025-01-10 07:45 | Outpatient (RCR) | payer OTHER, SELFPAY ==
--- NOTE | 2025-01-10 18:15 | OPREHPOC ---
Outpatient Therapy Plan of Care This is a Multidisciplinary Plan of Care that may contain components documented by all disciplines (PT, OT, and ST.) PT Problem 1 PT Problem #1 Knowledge Deficit PT Goal 1 Goal / Goal Update [place] with HEP Target Visit 4 Progress Met PT Goal 2 Goal / Goal Update Report no increase in pain with progressive shoulder mobility Target Visit 14 Progress Partially Met PT Problem 2 PT Problem #2 Impaired Range of Motion PT Goal 1 Goal / Goal Update 1. Achieve 175 degrees consistent active shoulder flexion of left shoulder 2. Achieve 85 degrees consistent active shoulder external rotation of left shoulder 3. Demonstrate 70 degrees of left shoulder internal rotation actively Target Visit 14 Progress Met PT Goal 1 Goal / Goal Update Demonstrate full serratus activation indicated by 50 repetitions of 5 # with no cueing Target Visit 18 Progress Met PT Goal 2 Goal / Goal Update Improve left shoulder external rotation and flexion strength to 4+/5 to improve object lifting and stabilization of shoulder Target Visit 18 Progress Met
--- NOTE | 2025-01-10 18:15 | PTOPDC ---
Assessment and note entered by Dandre Pfeiffer, PT Evaluation Information Assessment Status Progress Diagnosis M75.02 ICD-10 Condition Codes (PT) Pain in left shoulder M25.512 Onset 09/06/24 Subjective Information Reports that he feels he is 90% better but still struggles with end range in exercise activity. Feels he would like to go above and beyond where he currently is so he can return to his pre-injury strength and mobility standard that he has on his right shoulder. Plans to continue with aggressive ROM with potential of future MD follow up to assess shoulder anatomy shoulder tolerance and motion not improve. Reported Pain Level Pain Score 0: Self Report Additional Pain Score Comments pain in past few days to 6/10--stretching, hanging from an overhead bar; Assessment PT Clinical Summary Patient has seen mobility and strength improvement to affected shoulder. His remaining deficits are limited to high intensity and full end range motion incorporated with high level exercise activity. Patient has been very compliant and will continue to work on shoulder mobility and strengthening for residential functional progress and performance with athletic activity. Plan of Care PT Services Indicated Yes
== END 2025-01-11 08:48 | disposition home or self-care (01) ==
LOC: ANHPT 07:45
PROVIDERS: PCP Nurse Practitioner
DX: M75.02 Adhesive capsulitis of left shoulder (principal)
CPT/HCPCS: 97110; 97140